=== PATIENT | male | born 1955 | race Caucasian/White ===

== ENCOUNTER 2017-08-25 11:56 | Inpatient (IN) ==
--- NOTE | 2017-08-24 17:53 | Discharge Summary ---
<Xochilt Montez - Last Filed: 08/24/17 17:51> Date of Encounter: 08/24/17 - Discharge Diagnosis (1) Rotator cuff arthropathy Priority: Primary Status: Chronic Qualifiers: Laterality: right Qualified Code(s): M12.811 - Other specific arthropathies , not elsewhere classified, right shoulder (2) HTN (hypertension) Priority: Secondary Status: Chronic Qualifiers: Hypertension type: unspecified Qualified Code(s): I10 - Essential (primary ) hypertension (3) Tobacco dependence Priority: Secondary Status: Chronic (4) Obesity Priority: Secondary Status: Chronic Qualifiers: Obesity type: unspecified obesity type Obesity classification: unspecified obesity classification Serious obesity comorbidity presence: unspecified whether serious comorbidity present Qualified Code(s): E66.9 - Obesity, unspecified - Discharge Medications Home Medications: OxyCODONE Immed Rel [Roxicodone 5 MG] 5 mg PO Q6HR PRN 7 Days #28 tablet [Rx] ALPRAZolam [Xanax 1 MG Tablet] 1 mg PO DAILY PRN 08/25/17 [History] Aspirin [Lo-Dose Aspirin EC] 81 mg PO DAILY 08/25/17 [History] Atenolol [Tenormin] 50 mg PO BID 08/25/17 [History] OxyCODONE/APAP 5/325 [Percocet 5/325 MG] 1 tab PO Q12H PRN 08/25/17 [History] Allergies/Adverse Reactions: 3 Allergy/AdvReac Type Severity Reaction Status Date / Time No Known Allergies Allergy Verified 08/25/17 12:22 Primary care physician: Jamar Silvestre - Patient Status Disposition: Home, Self-Care Condition: Good - Discharge Instructions Instructions: Oxycodone, Rapid Release (By mouth), Joint Replacement Surgery ( [place]) Follow Up With: Jamar Silvestre [Primary Care Provider] - Sam Herring [Family Provider] - - Hospital Course Hospital course: Mr. Cardona is a 61 year old male - Time Spent with Patient Total time spent providing and/or coordinating discharge services: <Liborio Love - Last Filed: 08/25/17 18:49> Date of Encounter: 08/25/17 Time of Encounter: 18:49 - Discharge Diagnosis (1) Morbid obesity with BMI of 40.0-44.9, adult Priority: Secondary Status: Chronic (2) Rotator cuff arthropathy Priority: Primary Status: Chronic Qualifiers: Laterality: right Qualified Code(s): M12.811 - Other specific arthropathies , not elsewhere classified, right shoulder (3) HTN (hypertension) Priority: Secondary Status: Chronic Qualifiers: Hypertension type: unspecified Qualified Code(s): I10 - Essential (primary ) hypertension (4) Tobacco dependence Priority: Secondary Status: Chronic Primary care physician: Jamar Silvestre - Patient Status Overall status at discharge: patient is progressing back to baseline - Hospital Course Hospital course: Mr. Cardona is a 61 year old male Status post right total shoulder replacement this patient discharged same day - Time Spent with Patient Total time spent providing and/or coordinating discharge services:
--- NOTE | 2017-08-25 12:25 | Anesthesia Evaluation PreOp ---
Date of Encounter: 08/25/17 Time of Encounter: 12:23 - Past History Planned Operation: Right Total Shoulder Cardiac History: HTN Pulmonary History: Smoker (quit 20 years ago, smoked for 10 years but started smoking again 1.5 yars ago) [employer] History: Denies Any Significant HX Other Medical History: Other (obesity BMI=41.9) Anesthesia History: No Prior Anesthetic Complications, Past Anesthesia Alcohol Use: occasionally Drug use: none Medications and Allergies OxyCODONE Immed Rel [Roxicodone 5 MG] 5 mg PO Q6HR PRN 7 Days #28 tablet [Rx] ALPRAZolam [Xanax 1 MG Tablet] 1 mg PO DAILY PRN 08/25/17 [History] Aspirin [Lo-Dose Aspirin EC] 81 mg PO DAILY 08/25/17 [History] Atenolol [Tenormin] 50 mg PO BID 08/25/17 [History] OxyCODONE/APAP 5/325 [Percocet 5/325 MG] 1 tab PO Q12H PRN 08/25/17 [History] 3 Allergy/AdvReac Type Severity Reaction Status Date / Time No Known Allergies Allergy Verified 08/25/17 12:22 - Meds/Allergy Pre-op Review Medications Reviewed: Yes Allergies Reviewed: Yes Beta Blockers on Current Med List: Yes If Beta Blockers taken, Date/Time (Last Dose taken): 08/25/2017 at 0800 Anesthesia Results - Labs Laboratory Tests 08/06/17 08/06/17 08/06/17 09:40 09:40 09:40 WBC 4.7 Hgb 14.5 Hct 43.5 Plt Count 231 PT 9.8 INR 0.9 APTT 27.6 Sodium 138 Potassium 4.5 BUN 12 Creatinine 0.90 - Imaging EKG: report reviewed (08/06/2017 SINUS RHYTHM) Anesthesia Exam O2 Sat Height 1.91 m Height 1.91 m Weight 151.953 kg Weight 151.953 kg O2 Sat by Pulse Oximetry 94 Vital Signs Temp Pulse Resp BP Pulse Ox 98.1 F 70 18 146/79 94 08/25/17 12:24 08/25/17 12:24 08/25/17 12:24 08/25/17 12:24 08/25/17 12:24 Height: 6'3'' Weight: 335 lbs NPO (# of Hours): 8 Pain Scale: 6 (right shoulder) Pain Scale Used: Numeric (1 - 10) - HEENT Pupil (Motor): EOMI Mallampati: III Teeth: Normal (chipped upper front tooth) Oral Opening: Greater than 3 - [employer] LOC: Oriented [employer] Motor: Normal RUE, Normal LUE, Normal RLE, Normal LLE, Normal Face [employer] Sensory: Normal: RUE, LUE, RLE, LLE, Face - Cardiac Rhythm: Regular Murmur: None - Pulmonary Breath Sounds: bilateral Clear Respiratory Effort: Symmetrical Anesthesia Assess/Plan ASA Score: 3 Modified Jabier Scale for Level of Consciousness: Cooperative, oriented, and tranquil Anesthetic Plan: General, Regional Monitoring Plan: Standard Monitors Recovery Plan: PACU
[2017-08-25] MEDS ORDERED: Albuterol 2.5 MG/3 ML NEBULIZER IH ONE (12:33)
[2017-08-25] MEDS ORDERED: CeFAZolin Syr 3,000MG/30 ML 3,000 MG/30 ML SYRINGE IVPB ONE (12:33)
[2017-08-25] MEDS ORDERED: *HR* HYDROmorphone (PF) 1 MG/ML SYRINGE IVP PRN ×2 (12:36→17:06)
[2017-08-25] MEDS ORDERED: *HR* Promethazine 25 MG/ML VIAL IVP PRN (12:36)
--- NOTE | 2017-08-25 12:39 | Anesthesia Procedures ---
Date of Encounter: 08/25/17 Time of Encounter: 13:52 Procedures: Anesthesia - Nerve Block Procedure Date: 08/25/17 Time: 13:52 Allergies/Adv Reactions: nkda Pre-op Diagnosis: RIGHT SHOULDER REPLACEMENT Surgical Procedure: RIGHT SHOULDER ARTHRITIS Checklist: Correct Patient Identifier, Correct procedure, History checked Correct side: Right Blood Thinner: No Monitor Applied: EKG, BP, Pulse Oximetry Supplemental Oxygen via Nasal Cannula (L/min): 2 Sedation: Versed (mg): 2 Sedation: Fentanyl (mcg): 2 Indication: Post Op Analgesia Pre-op Neuro Deficits: No Block Type: Supraclavicular Catheter placed: No Sterile Technique: Yes Ultrasound used: Yes Anatomy identified: Yes Visual spread of Local: Yes Neuro Stimulation: Yes Nerve Stimulator Range: 0.2 - 0.4 mA Blood on Needle Aspiration: No Smooth Injection of Local: Yes Pain with Injection of Local: No Prep: Chlorhexadine Needle: 22 x 50 mm Stimuplex Local: 0.25% Bupivicaine w/Clonidine 20 mcg/cc, Ropivacaine Volume (cc): 50 Number of Attempts: 1 Complications: None/effective block Vitals: Vital Signs - Last 8 Hours Temp Pulse Resp BP Pulse Ox 08/25/17 12:24 98.1 F 70 18 146/79 94 Intake and Output 08/24/17 08/25/17 08/25/17 23:59 07:59 15:59 Other: Weight 151.953 kg Patient Weight 08/25/17 23:59 Weight 151.953 kg Comments: PER DR. BENOIT REQUEST
[2017-08-25] MEDS ORDERED: *HR* FentaNYL (PF) 100 MCG/2 ML VIAL ONE (12:50)
[2017-08-25] MEDS ORDERED: Dexamethasone 4 MG/ML VIAL ONE (12:50)
[2017-08-25] MEDS ORDERED: Ondansetron 4 MG/2 ML VIAL ONE (12:50)
[2017-08-25] MEDS ORDERED: Lidocaine -MPF 4% 5 ML AMPUL ONE (12:50)
[2017-08-25] MEDS ORDERED: *HR* Succinylcholine 200 MG/10 ML VIAL IVP ONE (12:50)
[2017-08-25] MEDS ORDERED: Lidocaine -MPF 2% 2 ML VIAL ONE (12:50)
[2017-08-25] MEDS ORDERED: *HR* Propofol 200 MG/20 ML VIAL IVP ONE (12:51)
[2017-08-25] MEDS ORDERED: Ketorolac 30 MG/ML VIAL ONE (12:51)
[2017-08-25] MEDS ORDERED: *HR* Midazolam HCl 2 MG/2 ML VIAL ONE (12:51)
--- NOTE | 2017-08-25 13:04 | History & Physical Report ---
Date of Encounter: 08/25/17 Time of Encounter: 13:04 24 Hour HP Update - Instructions Instructions: If the History and Physical is less than 30 days old and was completed prior to A.M. admission and or procedure and has NOT been updated on calendar day of procedure please complete this update prior to performing procedure. - Update Patient reports changes in Medical Condition: No Changes in examination, assessment, or condition: No Changes in Medication: No Preop tests/diagnostics Reviewed: Yes Surgery Remains Indicated: Yes Consent for Planned Operative Procedure(s) Verified: Yes - Pre-Operative Checklist Preoperative Checklist Indicated: No Prophylactic Antibiotic Ordered: Yes Is VTE Prophylaxis Indicated?: Yes
[2017-08-25] MEDS ORDERED: ROPIVACAINE HCL/PF 0.5% 30 ML VIAL ONE (13:29)
[2017-08-25] MEDS ORDERED: Bupivacaine/Clonidine Syringe 1 EACH SYRINGE ONE (13:30)
[2017-08-25] MEDS: Ringers Solution, Lactated 1,000 ML IVC SCH ×2 (14:00→15:09)
[2017-08-25] MEDS ORDERED: *HR* HYDROmorphone 2 MG/ML SYRINGE ONE (14:49)
[2017-08-25] MEDS ORDERED: Ketamine *HR* 500 MG/10 ML MDV ONE (14:55)
[2017-08-25] MEDS ORDERED: Acetaminophen IV 1,000 MG/100 ML INFUS..BTL ONE (14:56)
[2017-08-25] MEDS ORDERED: EPHEDrine 50 MG/ML VIAL ONE (15:02)
--- NOTE | 2017-08-25 15:08 | Orthopedic Operative Note ---
Date of procedure: 08/25/17 Pre-op diagnosis: Right shoulder cuff tear arthropathy Post-op diagnosis: same Procedure: Procedure: Total Shoulder Replacment Reverse, right Estimated blood loss: 100 cc Hardware: Metal and polyethylene replacement: Arthrex large glenoid baseplate, 2 4.5 screws. 1 6.5 screw, 42+4 glenosphere, 12 humeral stem, poly insert rate and 9 metal spacer Exam Under anesthesia: Motion full, no instability Procedural Notes: Irreparable tear supraspinatus tendon. Operative procedure: The patient was brought to the operating room and placed on the operating room table. After general anesthesia was administered the operative shoulder was examined. Findings were noted. The patient was placed in the modified beachchair position. All pressure points were padded appropriately. And the head was stabilized in the neutral position. The operative extremity was prepped and draped in the sterile surgical fashion. The patient received IV antibiotics prior to skin incision. A standard deltopectoral approach was made to the operative shoulder. Incision was made to the skin and subcutaneous tissue,hemo stasis was obtained with Bovie cautery. Using careful blunt dissection the cephalic vein was identified and mobilized medially. The deltopectoral interval was developed and the clavipectoral fascia was incised. The subscap was released off the lesser tuberosity and tagged with #2 FiberWire suture, subscap was irreparable. The humerus was dislocated patient noted to have irreparable tear supraspinatus tendon, and the humeral cut was made along the anatomic neck. Anterior and posterior Bankart retractors were placed to expose the glenoid. The glenoid guide was seated and the centering hole was made. It was reamed with the appropriate reamer. The large baseplate was seated and secured with (2) 4.5 screws and one 6.5 screw. The baseplate was irrigated and dried and the 42+4 Glenosphere was seated and secured with the Brown taper. The Brown taper was tested and found to be secure the humerus was redislocated and prepared with the diaphyseal reamers, followed by a broaching process up to the appropriate size 12 in the patient's anatomic version. The metaphyseal reamer was then utilized. Trial reduction found the shoulder to be relocatable. Trial components were removed and the 12 stem was impacted in place in the patient's anatomic version. Trial reduction found the shoulder to be relocatable and stable with the appropriate 9 metal and 3 poly-spacers Trial component was removed and the real implant was seated and secured the shoulder was reduced. The shoulder had excellent motion and excellent stability and no evidence of dislocation. The deep tissue was irrigated with pulse irrigation. The PA closed the shoulder. The deltopectoral interval was closed with a running #1 PDS suture, subcutaneous tissue was irrigated and closed with 0 PDS suture, the skin was closed with Dermabond. The patient was placed in a sterile dressing, abduction brace and extubated. The patient was then transferred to the recovery room in stable condition. Anesthesia: MARTHA Surgeon: Liborio Love Condition: stable Disposition: PACU
--- NOTE | 2017-08-25 16:03 | Anesthesia Evaluation Post Op ---
Date of Encounter: 08/25/17 Time of Encounter: 16:03 - Vital Signs Vital Signs: Vital Signs - Last 8 Hours Temp Pulse Resp BP Pulse Ox 08/25/17 15:55 73 18 119/81 93 08/25/17 15:45 87 20 124/70 93 08/25/17 15:35 97.4 F L 79 20 145/83 98 08/25/17 13:54 69 16 141/82 95 08/25/17 13:26 70 133/77 94 08/25/17 12:24 98.1 F 70 18 146/79 94 Intake and Output 08/25/17 08/25/17 08/25/17 07:59 15:59 23:59 Intake Total 1000 / 1000 Output Total 100 / 100 Balance 900 / 900 Intake: IV Fluids 1000 / 1000 Lactated Ringers 1,000 ML @ 25 1000 / 1000 mls/hr IVC .Q24H [facility] Rx#: [id number] Output: Estimated Blood Loss 100 / 100 Other: Weight 151.953 kg Patient Weight 08/25/17 23:59 Weight 151.953 kg - Lungs Lungs: Clear Ascult./Percussion - Airway Airway: Non-obstructed - Cardiovascular Regular Rate, Baseline Rhythm - Mental Status Mental Status: Alert & Oriented, Answers Appropriately - Pain Pain Scale: 0 (denies pain ) Pain Scale used: Numeric (1 - 10) - Nausea Vomiting Nausea Vomiting: Not Present - Hydration Hydration: Tolerates oral liquids, Ice chips - Discharge PostOp Status: Transfer Patient to floor
[2017-08-25 16:09] LABS: Hematocrit 42.1 % (37.5-50.1); Hemoglobin 14.1 g/dL (12.9-16.9)
[2017-08-25] MEDS ORDERED: *HR* OxyCODONE Immed Rel 5 MG TABLET PO PRN ×2 (17:06)
[2017-08-25] MEDS ORDERED: MOM Conc 10 ML UD.LIQ PO PRN (17:06)
[2017-08-25] MEDS ORDERED: Temazepam 15 MG CAPSULE PO PRN (17:06)
[2017-08-25] MEDS ORDERED: ALPRAZolam 1 MG TABLET PO PRN (17:06)
[2017-08-25] MEDS ORDERED: Naloxone 0.4 MG/ML INJ IVP PRN (17:06)
[2017-08-25] MEDS ORDERED: Ringers Solution, Lactated 1,000 ML IVC SCH (17:06)
[2017-08-25] MEDS ORDERED: Sennosides 8.6 MG TABLET PO PRN (17:06)
[2017-08-25] MEDS ORDERED: Ondansetron 4 MG/2 ML VIAL IVP PRN (17:06)
[2017-08-25] MEDS ORDERED: *HR* Enoxaparin 30 MG/0.3 ML SYRINGE SQ SCH ×2 (18:00)
[2017-08-25] MEDS ORDERED: CeFAZolin Syr 3,000MG/30 ML 3,000 MG/30 ML SYRINGE IVPB SCH ×2 (18:06→22:00)
[2017-08-25 18:16] VITALS: BP 139/71
[2017-08-26] MEDS ORDERED: Aspirin Enteric Coated 81 MG Tablet PO SCH (09:00)
== END 2017-08-25 20:43 | disposition home or self-care (01) | DRG 483 ==
LOC: SAMDAY 11:56 → 3NENU 16:36
PROVIDERS: ADMIT Orthopaedic Surgery; ATTEND Orthopaedic Surgery